=== PATIENT | female | born 1995 | race Caucasian/White ===

== ENCOUNTER 2022-04-04 08:00 | Outpatient (CLI) | payer BC ==
[2022-04-04 19:52] LABS: BACTERIAL VAGINOSIS DNA POSITIVE (NEGATIVE); CANDIDA GLABRATA DNA NEGATIVE (NEGATIVE); CANDIDA GROUP DNA NEGATIVE (NEGATIVE); CANDIDA KRUSEI DNA NEGATIVE (NEGATIVE); TRICHOMONAS VAGINALIS DNA NEGATIVE (NEGATIVE)
[2022-04-04 20:57] LABS: CHLAMYDIA TRACHOMATIS DNA NEGATIVE (NEGATIVE); NEISSERIA GONORRHOEAE DNA NEGATIVE (NEGATIVE)
== END 2022-04-04 23:59 | disposition home or self-care (01) ==
LOC: LAB.N 08:00
PROVIDERS: ATTEND Physician Assistant
DX: N89.8 Other specified noninflammatory disorders of vagina (principal)
CPT/HCPCS: 81514; 87491; 87591; 87661

== ENCOUNTER 2023-03-10 13:27 | Outpatient (CLI) | payer BC ==
--- NOTE | 2023-03-10 18:04 | Ultrasound Report ---
PROCEDURE: Pelvic w/Transvaginal INDICATIONS: PELVIC PAIN TECHNIQUE: Real-time scanning was performed of the pelvic organs, with image documentation. Additional endovagi nal scanning was necessary due to incomplete visualization of the adnexal and endometrial structures by transabdominal scanning. COMPARISON: None. FINDINGS: Uterus: Uterus is anteverted and normal in size at 6.5 x 3.8 x 4.3 cm. The myometrium is homogeneou s. The endometrium measures 5 mm in combined thickness. No abnormal vascularity can be seen along t he endometrial stripe. Nabothian cysts are incidentally noted. Ovaries: The right ovary measures 3 x 2.3 x 1.9 cm, with a calculated ovarian volume of 6.7 cc. The left ovary measures 3.6 x 1.7 x 2 cm, with a calculated ovarian volume of 6.1 cc. The ovaries have a normal sonographic appearance. Approximately 12 follicles can be seen involving each ovary. No ad nexal masses are seen. No cystic lesions measuring greater than 3 cm. Other: No pathologic free abdominal or pelvic fluid. IMPRESSION: No imaging explanation is found for the patient's presenting symptoms. Reviewed by: Gerald Patrick MD on 03/10/2023 5:03 PM LUIS Approved by: Gerald Patrick MD on 03/10/2023 5:03 PM LUIS Station ID: [id number]
== END 2023-03-10 13:28 | disposition home or self-care (01) ==
LOC: DI 13:27
PROVIDERS: ATTEND Obstetrics & Gynecology
DX: R10.2 Pelvic and perineal pain (principal)

== ENCOUNTER 2023-08-14 12:30 | Outpatient (CLI) | payer BC ==
[2023-08-14 22:34] LABS: CHLAMYDIA TRACHOMATIS DNA NEGATIVE (NEGATIVE); NEISSERIA GONORRHOEAE DNA NEGATIVE (NEGATIVE)
[2023-08-14 23:49] LABS: BACTERIAL VAGINOSIS DNA NEGATIVE (NEGATIVE); CANDIDA GLABRATA DNA NEGATIVE (NEGATIVE); CANDIDA GROUP DNA NEGATIVE (NEGATIVE); CANDIDA KRUSEI DNA NEGATIVE (NEGATIVE); TRICHOMONAS VAGINALIS DNA NEGATIVE (NEGATIVE)
[2023-08-15 03:11] LABS: HCV AB Non Reactive (Non Reactive); HIV SCREEN 4TH GENERATION Non Reactive (Non Reactive)
[2023-08-15 04:09] LABS: HSV 1 IGG TYPE SPEC <0.91 index (0.00-0.90); HSV 2 IGG TYPE SPEC <0.91 index (0.00-0.90)
[2023-08-15 07:11] LABS: RPR Non Reactive (Non Reactive)
== END 2023-08-14 12:45 | disposition home or self-care (01) ==
LOC: LAB.N 12:30
PROVIDERS: ATTEND Family Medicine
DX: Z11.3 Encounter for screening for infections with a predominantly sexual mode of transmission (principal)
CPT/HCPCS: 36415; 81514; 86592; 86695; 86696; 86803; 87389; 87491; 87591; 87661

== ENCOUNTER 2024-07-26 08:14 | Inpatient (IN) ==
[2024-07-26] MEDS ORDERED: miSOPROStoL 200 MCG TABLET PR PRN (10:06)
[2024-07-26] MEDS ORDERED: ACETAMINOPHEN 500 MG TABLET PO PRN ×2 (10:06→18:29)
[2024-07-26] MEDS ORDERED: hydrALAZINE INJ 20 MG/ML VIAL IVP PRN ×3 (10:06→18:29)
[2024-07-26] MEDS ORDERED: TRANEXAMIC ACID IN NACL 1,000 MG/100 ML BAG IV PRN (10:06)
[2024-07-26] MEDS ORDERED: TERBUTALINE 1 MG/ML VIAL SUBQ PRN (10:06)
[2024-07-26] MEDS ORDERED: LABETALOL 20 MG/4 ML SYRINGE IVP PRN ×5 (10:06→18:29)
[2024-07-26] MEDS ORDERED: NIFEdipine 10 MG CAPSULE PO PRN ×2 (10:06→18:29)
[2024-07-26] MEDS ORDERED: lidocaine 1% 20 ML MDV ID PRN (10:06)
[2024-07-26] MEDS ORDERED: miSOPROStoL 200 MCG TABLET BC PRN (10:06)
[2024-07-26] MEDS ORDERED: OXYTOCIN/SODIUM CHLORIDE 500 ML IV PRN ×2 (10:06→18:29)
[2024-07-26] MEDS ORDERED: SODIUM CHLORIDE FLUSH 0.9% 10 ML SYRINGE IVP PRN (10:06)
[2024-07-26] MEDS ORDERED: METHYLERGONOVINE 0.2 MG/ML VIAL IM PRN (10:06)
[2024-07-26] MEDS ORDERED: LACTATED RINGERS 1,000 ML IV PRN (10:06)
[2024-07-26] MEDS ORDERED: fentaNYL 100 MCG/2 ML VIAL IVP PRN (10:06)
[2024-07-26] MEDS ORDERED: SERTRALINE 50 MG TABLET PO SCH ×2 (11:00→12:20)
[2024-07-26 11:30] LABS: BASOPHILS # (AUTO) 0.1 10^3/uL (0.0-0.1); BASOPHILS % (AUTO) 0.3 %; EOSINOPHILS # (AUTO) 0.1 10^3/uL (0.0-0.7); EOSINOPHILS % (AUTO) 0.3 %; HCT - HEMATOCRIT 42.3 % (37.0-47.0); HGB - HEMOGLOBIN 13.6 g/dL (12.0-16.0); LYMPHOCYTES # (AUTO) 1.4 10^3/uL (1.5-3.5); LYMPHOCYTES % (AUTO) 7.9 %; MEAN CORPUSCULAR HEMOGLOBIN 27.4 pg (27.0-31.0); MEAN CORPUSCULAR HGB CONC 32.2 g/dL (32.0-36.0); MEAN CORPUSCULAR VOLUME 85.1 fL (81.0-99.0); MEAN PLATELET VOLUME 9.2 fL (7.9-10.8); MONOCYTES # (AUTO) 0.7 10^3/uL (0.0-1.0); MONOCYTES % (AUTO) 3.8 %; NEUTROPHILS # (AUTO) 15.1 10^3/uL (1.5-6.6); NEUTROPHILS % (AUTO) 87.2 %; PLT - PLATELET COUNT 249 10^3/uL (130-450); RED BLOOD COUNT 4.97 10^6/uL (4.20-5.40); RED CELL DISTRIBUTION WIDTH 14.4 % (12.0-15.0); WHITE BLOOD COUNT 17.3 x10^3/uL (4.8-10.8)
[2024-07-26] MEDS: miSOPROStoL 200 MCG TABLET VG SCH ×2 (12:30→20:21)
--- NOTE | 2024-07-26 12:37 | HISTORY & PHYSICAL EXAMINATION ---
Admit History Visit Reason Visit Reason: Other (known previable prelabor rupture of membranes with cramping and bleeding) Smoking Status: Never smoker Other Maternal History Other Maternal History: HPI: Olga is a 29 yo at 20w0d with previable prelabor rupture membranes diagnosed on 07/23/24, who is being admitted for induction of labor. Olga presented to triage this morning with cramping every 7 min in addition to episode of bleeding this morning. She report having cramping in her lower back intermittently last night that would wake her for sleep, then cramping became more regular this morning. Reports one episode of saturating her pad, seeing more bright red blood when she wipes. She was scheduled for consult with MFM at [facility] on Sunday. After much consideration today, Olga has decided to proceed with induction of labor. She is here today with her spouse and both of their moms. comoplicated by known cervical polyps. She also has a history of non- hodgkin's lymphoma. Rh+, antibody neg Rubella and varicella immune PE: Vitals signs reviewed Gen: NAD Resp: non labored respirations Abd: gravid, no fundal tenderness Ext: no LE edema Speculum exam performed, small amount of bloody discharge in vault but no active bleeding. There is a pale white tissue at the external os approximately 0.5cm x 1-2cm (possibly devascularized previously seen polyp?). SVE: external os 1cm Bedside US: FHTs present 155bpm with + FM. No visible fluid pockets. Labs: Admission CBC and T&S reviewed, WBC elevated at 17.3. A/P: 29 yo at 20w0d with previable prelabor rupture membranes, admitted for induction of labor. We discussed options again for expectant management with planned MFM consult on Sunday versus proceeding with delivery. Olga has decided for delivery. We discussed risks/benefits of induction of labor vs D&E procedure. Olga strongly desires to be able to hold baby once delivered and has chosen IOL. She understands that the IOL process can take longer (than D&E) and that there is increased risk for retained placenta. We have discussed possibility of needing a suction D&C procedure in the setting of retained placenta. Discussed after delivery of baby, delivery of placenta can take some time, however, if we encounter heavy bleeding/hemorrhage in the setting of retained placenta then D&C would be recommended. Understands that baby may pass during labor process. If baby is born living, can provided comfort measures but no plan for resuscitative actions. We have discussed options for pain management including use of bath tub, IV fentanyl, nitrous gas, and epidural. Will monitor closely for infection. Currently with elevated WBC, however, she has no fundal tenderness and is afebrile with normal VS. Bipin Acosta MD HPI Current : Vital Signs Temperature 98.2 F 07/26/24 09:03 Pulse Rate 89 07/26/24 09:03 Respiratory Rate 16 07/26/24 09:03 Blood Pressure 124/80 07/26/24 09:03 Meds/Allgy Home Medications Ambulatory Orders Medication Instructions Recorded Confirmed vitamins no.159-iron 1 tab PO DAILY 05/19/24 07/26/24 fumarate 28 mg-folic acid 800 mcg tablet ( Vitamin) sertraline 50 mg tablet (Zoloft) 50 mg PO QPM 05/19/24 07/26/24 aspirin 81 mg tablet 81 mg PO DAILY 07/23/24 07/25/24 Allergies Allergies Allergy/AdvReac Type Severity Reaction Status Date / Time No Known Drug Allergies Allergy Verified 07/23/24 08:16 [facility] Medical History Medical History (Updated 07/23/24 @ 13:23 by Reyna Muro MD) Hodgkins lymphoma Family History Family History (Updated 04/22/24 @ 10:15 by Yessica Garcia MA) Mother Ovarian cancer Social History Social History (Updated 07/23/24 @ 08:23 by Kendell Lu RN) Smoking Status: Never smoker Do you dip or chew tobacco?: No Do you vape?: No Living arrangement: At home Relationship: Level: Independent Do you feel safe in your home environment?: Yes Suffered physical, verbal, emotional, or financial abuse?: No History of Abuse: No ETOH Use: None Substance Use: denies use POLST Patient has POLST: No Physical Abdominal Exam Vital Signs: Temp Pulse Resp BP 98.2 F 89 16 124/80 07/26/24 09:03 07/26/24 09:03 07/26/24 09:03 07/26/24 09:03 Plan for Labor Plan For Labor I expect patient to be DC'd or transferred within 96 hours.: Yes Conclusion/Plan Lab Results Lab results reviewed: Yes 07/26/24 11:10
[2024-07-26 12:41] VITALS: BP 119/76; TEMP 99.3; O2SAT 99
[2024-07-26] MEDS ORDERED: ONDANSETRON 4 MG/2 ML VIAL ONE (14:28)
[2024-07-26] MEDS: ONDANSETRON 4 MG/2 ML VIAL IVP PRN (14:40)
[2024-07-26] MEDS ORDERED: fentaNYL 100 MCG/2 ML VIAL ONE (15:18)
[2024-07-26] MEDS ORDERED: ROPIVACAINE 0.2% 200 MG/100 ML BAG EP ONE (15:18)
--- NOTE | 2024-07-26 15:24 | PHARMACY PROGRESS NOTE ---
Best Possible Medication History Admit Date and Time: 07/26/24 1048 Home Medications Medication Instructions Recorded Confirmed Type vitamins no.159-iron 1 tab PO DAILY 05/19/24 07/26/24 History fumarate 28 mg-folic acid 800 mcg tablet ( Vitamin) sertraline 50 mg tablet (Zoloft) 50 mg PO QPM 05/19/24 07/26/24 History aspirin 81 mg tablet 81 mg PO DAILY 07/23/24 07/25/24 History Processed by: Pharmacy Medications reviewed in ED?: No Medication History completed: In progress Patient Interview: Pt unable to participate Secondary Source(s): Insurance records and Previous admit records [facility] Statement: As the person ultimately responsible for medication therapy, providers are able to order a medication from an existing home medication list in [facility] via the "Reconcile Routine" prior to Confirmation of that medication by clerical and office support workers. Such practice is discouraged except when the physician, in their clinical judgme nt, deems that a medical need exists for a medication without regard to previous use.
[2024-07-26] MEDS ORDERED: ROPIVACAINE 0.2% 200 MG/100 ML BAG EP PRN (16:02)
[2024-07-26] MEDS ORDERED: NALOXONE 0.4 MG/ML VIAL IVP PRN ×2 (16:02→18:29)
[2024-07-26] MEDS ORDERED: NALBUPHINE 10 MG/ML AMP IVP PRN (16:02)
[2024-07-26] MEDS ORDERED: diphenhydrAMINE INJ 50 MG/ML VIAL IVP PRN (16:02)
[2024-07-26] MEDS ORDERED: METOCLOPRAMIDE 10 MG/2 ML VIAL IVP PRN (16:02)
[2024-07-26] MEDS ORDERED: ePHEDrine 50 MG/ML VIAL IVP PRN (16:02)
[2024-07-26] MEDS ORDERED: LACTATED RINGERS 500 ML IV ONE (16:02)
[2024-07-26] MEDS ORDERED: ONDANSETRON 4 MG/2 ML VIAL IVP PRN (16:02)
--- NOTE | 2024-07-26 16:13 | ANESTHESIA PROCEDURE NOTE ---
Pre-Anesthesia VS, & Labs Diagnosis Surgical Diagnosis:: premature rupture of membranes Procedure Procedure: epidural for labor pain Vitals Vital Signs: Temp Pulse Resp BP Pulse Ox 37.4 C 98 14 119/76 99 07/26/24 12:40 07/26/24 12:40 07/26/24 12:40 07/26/24 12:40 07/26/24 12:40 NPO NPO: Other (clears from now until delivery) Is Patient ?: Yes Lab Results Current Lab Results: Laboratory Tests 07/26/24 11:10: WBC 17.3 H, RBC 4.97, Hgb 13.6, Hct 42.3, MCV 85.1, MCH 27.4, MCHC 32.2, RDW 14.4, Plt Count 249, MPV 9.2, Neut # (Auto) 15.1 H, Lymph # (Auto) 1.4 L, [place] # (Auto) 0.7, Eos # (Auto) 0.1, Baso # (Auto) 0.1, Absolute Nucleated RBC 0.00, Nucleated RBC % 0.0, Blood Type B POSITIVE, Antibody Screen NEGATIVE 07/26/24 11:10 Meds/Allgy Home Medications Ambulatory Orders Medication Instructions Recorded Confirmed vitamins no.159-iron 1 tab PO DAILY 05/19/24 07/26/24 fumarate 28 mg-folic acid 800 mcg tablet ( Vitamin) sertraline 50 mg tablet (Zoloft) 50 mg PO QPM 05/19/24 07/26/24 aspirin 81 mg tablet 81 mg PO DAILY 07/23/24 07/25/24 Allergies Allergies Allergy/AdvReac Type Severity Reaction Status Date / Time No Known Drug Allergies Allergy Verified 07/23/24 08:16 [facility] Medical History Medical History (Updated 07/23/24 @ 13:23 by Reyna Muro MD) Hodgkins lymphoma Family History Family History (Updated 04/22/24 @ 10:15 by Yessica Garcia MA) Mother Ovarian cancer Social History Social History (Updated 07/23/24 @ 08:23 by Kendell Lu RN) Smoking Status: Never smoker Do you dip or chew tobacco?: No Do you vape?: No Living arrangement: At home Relationship: Level: Independent Do you feel safe in your home environment?: Yes Suffered physical, verbal, emotional, or financial abuse?: No History of Abuse: No ETOH Use: None Substance Use: denies use POLST Patient has POLST: No Anesthesia Exam (Expanded) Exam General: Alert, Oriented x3 and Moderate distress Dental: WNL Mouth Opening: Greater than 4 Fingerbreadths Neck Mobility: Normal Mallampati classification: I Thyromental Distance: greater than 6 cm Respiratory: Lungs clear Cardiovascular: Regular rate Plan Plan Anesthesia Type: Epidural (epidural for delivery of non-viable ) Consent for Procedure(s) Verified and Reviewed: Yes Code Status: Attempt Resuscitation ASA Classification ASA classification: 2-Mild systemic disease Is this case an emergency?: No
[2024-07-26] MEDS: SODIUM CHLORIDE FLUSH 0.9% 10 ML SYRINGE IVP SCH (16:32)
[2024-07-26] MEDS: OXYTOCIN 10 UNIT/ML VIAL IM PRN (18:05)
--- NOTE | 2024-07-26 18:22 | DELIVERY NOTE ---
Delivery Note Labor Labor: positive Other (IOL with PV 800mcg of misoprostol) Delivery Method Delivery Method: positive Spontaneous vaginal delivery Presentation Presentation: positive Breech Amniotic Fluid Description Amniotic Fluid Description: positive Other (none.) Episiotomy Type Episiotomy Type: positive None Laceration Laceration: positive None Delivery Outcome Delivery Date: 07/26/24 Delivery Outcome: positive Stillbirth Ladson : positive Other (Dried and placed in clean towel, given to Olga.) Ladson sex: positive Female Placenta Placenta: positive Intact and Spontaneous Estimated Blood Loss Estimated Blood Loss (in cc): 310 Post Delivery Events Post Delivery Events: positive No post delivery events Delivery Comments (Free Text/Narrative) Delivery Comments (Free Text/Narrative): I was called by Olga's nurse that Olga was ready for delivery. On arrival, there were clots on peripad and umbilical cord prolapsing from vagina. parts palpabe in the vagina. I asked Olga to bear down and baby was delivered. No cord pulsations, still born. The cord was clamped and cut and the baby was wrapped in a clean towel and given to Olga. 10u of IM pitocin was given. The placenta was palpable in the vagina. I asked that she bear down again and placenta was delivered intact. Uterus firm and minimal bleeding noted. No perineal lacerations. Clots on peripad weighted, QBL 310cc. Bipin Acosta MD
[2024-07-26] MEDS ORDERED: SIMETHICONE CHEW 80 MG TABLET PO PRN (18:29)
[2024-07-26] MEDS ORDERED: oxyCODONE 5 MG TABLET PO PRN (18:29)
[2024-07-26] MEDS ORDERED: LABETALOL 5 MG/1 ML 20 ML MDV IVP PRN (18:29)
[2024-07-26] MEDS ORDERED: IBUPROFEN 600 MG TABLET PO PRN (18:29)
--- NOTE | 2024-07-26 20:46 | Discharge Summary ---
Discharge Summary Admit Date: 07/26/24 Discharge Date: 07/26/24 Discharging Provider: Bipin Acosta MD [facility] History of Present Illness: Admission Diagnosis: - [facility] at 20w0d - known previable prelabor rupture of membranes - cervical polyps Discharge Diagnosis: - Same, delivered Procedures: induction of labor Hospital Course: Olga is a 29 yo who presented at 20w0d with cramping/bleeding. She had presented the preceding Sunday and diagnosed with previable prelabor rupture of membranes. She had initially desired expectant management, however, today, made decision to proceed with induction of labor. She received 800mcg of PV misoprostol, received epidural, and then had uncomplicated delivery. Baby Isatu Marquez was born stillborn. Olga desired discharge home this evening after discontinuation of epidural, able to ambulate and urinate without difficulty, and with minimal bleeding. OBJECTIVE: Vital signs reviewed LAB & IMAGING STUDIES: See below PLAN: Plan for discharge home with follow up in clinic in 1 week. Discussed virtual visit OK if she prefers. Bleeding/infection precautions. Bipin Acosta MD ALLERGIES Allergies Allergy/AdvReac Type Severity Reaction Status Date / Time No Known Drug Allergies Allergy Verified 07/23/24 08:16 MEDICATIONS Ambulatory Orders Medication Instructions Recorded Confirmed vitamins no.159-iron 1 tab PO DAILY 05/19/24 07/26/24 fumarate 28 mg-folic acid 800 mcg tablet ( Vitamin) sertraline 50 mg tablet (Zoloft) 50 mg PO QPM 05/19/24 07/26/24 LABS 07/26/24 11:10 TIME SPENT Time Spent in Discharge (Minutes): 15 Discharge Plan Discharge Patient Disposition: Home, Self Care Prescriptions: Continued Vitamin 28 mg iron- 800 mcg tablet 1 tab PO DAILY sertraline [Zoloft] 50 mg tablet 50 mg PO QPM Discontinued aspirin 81 mg tablet 81 mg PO DAILY Activity Restrictions: Pelvic rest for 2-4 weeks Diet: Regular Print Language: Qatari Patient Instructions: Vaginal After, Depression , Miscarriage Emotions, Miscarriage Recovery, Miscarriage Trying Again, Miscarriage Dc
[2024-07-26] MEDS ORDERED: DOCUSATE SODIUM 100 MG CAPSULE PO SCH (21:00)
--- NOTE | 2024-07-26 21:48 | Labor Flowsheet ---
Labor Flowsheet Datetime Report Generated by CPN: 07/26/2024 21:48 Datetime: 07/26/2024 20:15 VITAL SIGNS NBP Sys/Adrienne/Mean (mmHg): 119 : 74 : 84 Pulse: 103 Datetime: 07/26/2024 19:30 PAIN Pain Scale: 0 Datetime: 07/26/2024 19:02 VAGINAL EXAM Membranes Ruptured Date/Time: 07/23/2024 00:00 Membranes Rupture Method: Spontaneous Amniotic Fluid Color: Clear Amniotic Fluid Amount: Large MEDICATIONS Cervical Ripening Agents: Cytotec @ Datetime: 07/26/2024 18:49 SpO2 (%): 99 Datetime: 07/26/2024 18:03 Medication Comments: Pitocin 10mg Datetime: 07/26/2024 18:01 Stage of : Recovery Datetime: 07/26/2024 17:59 LaborFlag: Labor Datetime: 07/26/2024 17:43 COMMUNICATION Communication: Call/Page Placed to Provider Provider Notified (Name): Dr. Acosta Notification Reason: Labor Status; Bleeding Communication Comments: RN noted moderate amount of bleeding on bed sheets, when changing linens an d assessing, RN noted protrusion of contents from vagina. MD otw Datetime: 07/26/2024 17:29 Connect Comments: Patient declined Miso at time due. Wanted time to reflect with her SO. Will upd ate MD with admin, Datetime: 07/26/2024 16:00 PATIENT CARE I/O Interventions: Webber Cath Inserted Datetime: 07/26/2024 15:47 Respirations: 14 Temperature (C): 36.8 Datetime: 07/26/2024 15:40 Epidural Procedure: Test Dose Datetime: 07/26/2024 15:20 PROCEDURE TIME OUT Procedure Verify: Accurate Procedure Consent Form; Agreement on Procedure to be Done; Correct Patie nt Position ANESTHESIA Anesthesia Plans: Epidural Epidural Positioning: Sitting Datetime: 07/26/2024 14:50 Pain Coping: Requesting Pain Medication or Epidural Anesthesia Comments: CUTLERY GRINDER called for epidural requests Datetime: 07/26/2024 14:08 ASSESSMENT A Comments: FHR tracing per maternal request
== END 2024-07-26 21:47 | disposition home or self-care (01) | DRG 807 ==
LOC: WFO 08:14 → FBP 08:17
PROVIDERS: ADMIT Obstetrics & Gynecology; ATTEND Obstetrics & Gynecology